=== PATIENT | male | born 1995 | race Two or more races ===

== ENCOUNTER 2022-05-27 01:23 | Emergency (ER) | payer OTHER ==
[~2022-05-27] VITALS: Ht 167.6 cm; Wt 85.0 kg
[2022-05-27 01:29] VITALS: BP 154/76
[2022-05-27] MEDS ORDERED: KETOROLAC TROMETH 60MG/2ML VIAL IM ONE (04:30)
== END 2022-05-27 04:35 | disposition home or self-care (01) ==
LOC: ER 01:23 → EEVIPCON 01:23 → EDBD 01:23 → ER 04:35
DX: S46.811A Strain of other muscles, fascia and tendons at shoulder and upper arm level, right arm, initial encounter (principal); X58.XXXA Exposure to other specified factors, initial encounter; Y93.67 Activity, basketball; Y92.89 Other specified places as the place of occurrence of the external cause; Y99.8 Other external cause status
CPT/HCPCS: 73080; 96372; 99283; J1885